=== PATIENT | male | born 1950 | race Caucasian/White ===

== ENCOUNTER 2016-11-29 17:18 | Emergency (ER) | payer OTHER ==
[2016-11-29 17:41] VITALS: TEMP 98.1
[2016-11-29] MEDS ORDERED: FAMOTIDINE 20 MG TAB PO ONE (18:48)
[2016-11-29] MEDS ORDERED: diphenhydrAMINE 25 MG CAP PO ONE (18:48)
[2016-11-29] MEDS ORDERED: predniSONE 20 MG TAB PO ONE (18:48)
--- NOTE | 2016-11-29 18:49 | UCPHY ---
H & P Time Seen by Provider: 11/29/16 18:40 Patient Type: New HPI/ROS: CHIEF COMPLAINT: Rash, itching HISTORY OF PRESENT ILLNESS: 66-year-old male woke last night with urticarial rash on his trunk, back, upper extremities, abdomen, lower extremities. No new known exposures. Patient did have a different [place] discharge last night, does have a history of allergies to sulfa. No throat tightness, lip swelling, eyelid swelling, wheezing, difficulty breathing. Patient took Benadryl and Liza. No fever, chills, chest pain, shortness of breath, palpitations, vomiting, diarrhea, urinary complaints, headache, lightheadedness. REVIEW OF SYSTEMS: Aside from elements discussed in the HPI, a comprehensive 10-point review of systems was reviewed and is negative. PAST MEDICAL HISTORY: Allergies, prostate cancer. SOCIAL HISTORY: Here with his . VITAL SIGNS: see nurse's notes. GENERAL: Well-developed, well-nourished, reports itching on the skin. HEENT: No eyelid edema. No lip swelling. Uvula is normal. Posterior pharynx is normal. Neck: supple, FROM. No stridor. LUNGS: Clear to auscultation bilaterally, no wheezes, rhonchi or rales. CARDIAC: Regular rate and rhythm, no rubs, murmurs or gallops. ABDOMEN: Soft, nontender, nondistended, bowel sounds normal. BACK: No CVA tenderness. No vertebral tenderness. EXTREMITIES: No edema, FROM. NEURO: Alert and oriented, grossly nonfocal. SKIN: Warm and dry, extensive urticarial rash/hives present over the anterior chest and posterior chest, anterior and posterior abdomen, upper extremities, lower extremities, and feet. No target lesions noted. Smoking Status: Former smoker Constitutional: Initial Vital Signs Temperature (C) 36.7 C 11/29/16 17:38 Heart Rate 77 11/29/16 17:38 Respiratory Rate 16 11/29/16 17:38 Blood Pressure 154/105 H 11/29/16 17:38 O2 Sat (%) 96 11/29/16 17:38 O2 Delivery Mode Room Air Allergies/Adverse Reactions: Sulfa (Sulfonamide Antibiotics) Allergy (Severe, Verified 11/29/16 17:41) Rash Home Medications: Medication Instructions Recorded [place] 11/29/16 EPINEPHRINE [EPIPEN] 0.3 mg IM ONCE #2 syr 11/29/16 Flonase Nasal [place] 11/29/16 Prevacid 11/29/16 Singulair 11/29/16 Wellbutrin Sr 11/29/16 predniSONE [prednisone 10mg (RX)] 40 mg PO DAILY 3 Days 11/29/16 MDM/Departure - MDM Medications Given: Discontinued Medications Diphenhydramine HCl (Benadryl) 50 mg PO EDNOW ONE Stop: 11/29/16 18:49 Last Admin: 11/29/16 19:00 Dose: 50 mg Famotidine (Pepcid) 40 mg PO EDNOW ONE Stop: 11/29/16 18:49 Last Admin: 11/29/16 19:00 Dose: 40 mg Prednisone (Prednisone) 60 mg PO EDNOW ONE Stop: 11/29/16 18:49 Last Admin: 11/29/16 19:00 Dose: 60 mg ED Course/Re-evaluation: Suspect allergic reaction. I see no target lesions, petechiae, intraoral sloughing. I see no signs of an anaphylactic reaction. No uvular swelling, no mucous membrane swelling, no angioedema, no wheezing, no shortness of breath, no stridor. Unclear what may be causing allergic reaction. Differential Diagnosis: Differential diagnosis of the patient's rash was considered including but not limited to allergic reaction, urticaria, viral exanthem, erythema multiforme, Bales-Fransisco syndrome, petechial rash, scarlatiniform rash, HUS, cellulitis, or purpuric rash. - Depart Disposition: Home, Routine, Self-Care Clinical Impression: Urticaria, Allergic reaction Condition: Good Instructions: Urticaria (ED), General Allergic Reaction (ED) Additional Instructions: There are 4 medications used to treat allergic reactions. #1. The first is epinephrine. Please use the epinephrine pen in the future as needed if the you develop acute swelling, throat tightness, shortness of breath , or severe rash in the setting of allergic reaction. #2. The second type of medication are antihistamines. The most common antihistamine is diphenhydramine (Benadryl). Dose is 50 mg every 6-8 hours as needed for itching and rash. Diphenhydramine can be sedating. Another type of antihistamine is loratadine (Claritin) or Liza. This is taken once a day. It is not sedating. Repeat doses of antihistamines may be needed as the hives will come and go over the next several days. You may notice that the hives are worse after exposure to heat, warm showers, or exertion. #3. The third medication is Pepcid which is another type of an antihistamine. Dose is 20 mg once a day for 3 days. This should be taken on a regular basis. #4. The fourth medication is prednisone, which is a steroid. The dose is 40 mg a day x3 doses. Please take this as instructed. #5. Return to emergency department or seek care urgently if severe shortness of breath develops, swelling of the lips, eyelids, or sensation that the throat is closing. Please follow up with your primary care physician as needed. Prescriptions: EPINEPHRINE [EPIPEN] 0.3 mg IM ONCE #2 syr predniSONE [prednisone 10mg (RX)] 40 mg PO DAILY 3 Days Referrals: Unknown,Unknown [Primary Care Provider] - As per Instructions - PQRS PQRS Measurement: Not applicable
[2016-11-29 19:26] VITALS: BP 149/99; PULSE 89; RESP 20; O2SAT 95
== END 2016-11-29 19:05 | disposition home or self-care (01) ==
LOC: CED 17:18
DX: R21 Rash and other nonspecific skin eruption (principal); Z85.46 Personal history of malignant neoplasm of prostate; Z87.891 Personal history of nicotine dependence
CPT/HCPCS: 99203-PO; G0463-PO